=== PATIENT | female | born 1960 | race Caucasian/White ===

== ENCOUNTER 2023-05-23 22:31 | Emergency (ER) | payer OTHER ==
--- OUTSIDE RECORDS SUMMARY | 2023-05-23 22:43 | XMS REPORT | Continuity of Care Document ---
:1960 Author Organization [facility] t Address [address] [place] [id number] Care Team Providers Name Role Phone CHLOE Attending Clinician Unavailable Nelson Sandoval Attending Clinician [phone] Mathieu Cardona Attending Clinician [phone] Lokesh Aiken Attending Clinician [phone] CHLOE Admitting Clinician Unavailable Payers Payer Name Policy Type Policy Number Effective Date Expiration Date S jay[place] [id number] 2021 2022 ADVANTAGE (HMO) 00:00:00 00:00:[place] [id number] 2018 [place] (O) 00:00:00 Problems Condition Condition Condition Status Onset Resolution Last Treating Co mments Source Name Details Category Date Date Treatment Clinician Date Urinary Urinary Problem Active [facility] incontinen Incontinen 2-10 [facility] Hyperchole Hyperchole Problem Active 2019-09 S [facility] sterolemia sterolemia 2-01 [facility] m[facility]i 00:00: ty [facility] Epigastric Epigastric Problem Active 2019-09 [facility] pain Pain 2- [facility] 00:00: ty 00 [facility] Macrocytos Macrocytos Problem Active 2019-09 S [facility] is is 2- [facility] 00:00: ty 00 [facility] Depressive Depressive Problem Active 2019-09 [facility] disorder Disorder - Commun i 00:00: ty 00 [facility] Seasonal Seasonal Problem Active 2019-09 [facility] allergy Allergy - [facility] 00:00: ty 00 [facility] Asthma Asthma Problem Active 2019-09 [facility] -17 [facility] Allergies, Adverse Reactions, Alerts Allergy Allergy Status Severity Reaction(s) Onset Inactive Treating Comm ents Source Name Type Date Date Clinician Arlyn Allergy Active Seizure Moose c to Communi substanc ty e [facility] Social History Smoking Status Start Date Stop Date Source Former Smoker [facility] Medications Ordered Filled Start Stop Current Ordering Indication Dosage Frequency Signature Comments Components Source Medication Medication Date Date Medication? Clinician (SIG) Name Name Kenalog 40 Kenalog 40 No Kenalog 40 [facility]ose mg/mL mg/mL 2-22 mg/mL [facility]i suspension suspension 15:43: suspension ty for for 00 for Hospita injectionTa injectionTa injectionT l ke 1 mL by ke 1 mL by hitesh 1 mL Clinics injection injection by route. route. injection route. dexamethaso dexamethaso No dexamethas [facility] ne sodium ne sodium 2-22 one sodium Communi phosphate phosphate 15:41: phosphate ty 10 mg/mL 10 mg/mL 00 10 mg/mL [facility] injection injection injection l solutionTak solutionTak solutionTa Clinics e 1 mL by e 1 mL by ke 1 mL by injection injection injection route. route. route. Afluria Qd Afluria Qd No Afluria Qd Moose (36 (36 Communi mos mos (36 mos ty up)(PF)60 up)(PF)60 up)(PF)60 Hospita mcg (15 mcg mcg (15 mcg mcg (15 l x4)/0.5 mL x4)/0.5 mL mcg Cli nics IM syringe IM syringe x4)/0.5 mL PHARMACY PHARMACY IM syringe ADMINISTERE ADMINISTERE PHARMACY D D ADMINISTER ED albuterol albuterol No albuterol [facility]ose sulfate HFA sulfate HFA sulfate Communi 90 90 HFA 90 ty mcg/actuati mcg/actuati mcg/actuat Hospita on aerosol on aerosol ion l inhaler 2 inhaler 2 aerosol Cl inics puffs BID puffs BID inhaler 2 puffs BID [id number]-jssiq X61-jwjrj No J19-uysra [facility] acid-B6-soy acid-B6-soy acid-B6-so Communi rice ext rice ext y [facility] fluconazole fluconazole No fluconazol Moose 150 mg 150 mg e 150 mg Communi tablet Take tablet Take tablet ty 1 tablet 1 tablet Take 1 Hospi ta every week every week tablet l by oral by oral every week Cli nics route. route. by oral route. montelukast montelukast No montelukas Moose 10 mg 10 mg t 10 mg Communi tablet 1 PO tablet 1 PO tablet 1 ty qd qd PO qd Hospita l Clinics Afluria Qd Afluria Qd No Afluria Qd Moose ( ( Communi mos mos (36 mos ty up)(PF)60 up)(PF)60 up)(PF)60 Hospita mcg (15 mcg mcg (15 mcg mcg (15 l x4)/0.5 mL x4)/0.5 mL mcg Cli nics IM syringe IM syringe x4)/0.5 mL PHARMACY PHARMACY IM syringe ADMINISTERE ADMINISTERE PHARMACY D D ADMINISTER ED albuterol albuterol No albuterol [facility]ose sulfate HFA sulfate HFA sulfate Communi 90 90 HFA 90 ty mcg/actuati mcg/actuati mcg/actuat Hospita on aerosol on aerosol ion l inhaler 2 inhaler 2 aerosol Cl inics puffs BID puffs BID inhaler 2 puffs BID I49-cnyed Z99-oytgq No O09-livfm [facility] acid-B6-soy acid-B6-soy acid-B6-so Communi rice ext rice ext y rice ext t y Hospita l Clinics dexamethaso dexamethaso No 1mL dexamethas [facility] ne sodium ne sodium one sodium Communi phosphate phosphate phosphate ty 10 mg/mL 10 mg/mL 10 mg/mL [facility] injection injection injection l solution solution solution Cli nics Take 1 mL Take 1 mL Take 1 mL by by by injection injection injection route. route. route. fluconazole fluconazole No fluconazol [facility] 150 mg 150 mg e 150 mg Communi tablet Take tablet Take tablet ty 1 tablet 1 tablet Take 1 Hospi ta every week every week tablet l by oral by oral every week Cli nics route. route. by oral route. Kenalog 40 Kenalog 40 No 1mL Kenalog 40 [facility] mg/mL mg/mL mg/mL Communi suspension suspension suspension ty for for for Hospita injection injection injection l Take 1 mL Take 1 mL Take 1 mL Clinics by by by injection injection injection route. route. route. montelukast montelukast No montelukas [facility]ose 10 mg 10 mg t 10 mg Communi tablet TAKE tablet TAKE tablet ty 1 TABLET BY 1 TABLET BY TAKE 1 Hospita MOUTH EVERY MOUTH EVERY TABLET BY l DAY DAY MOUTH Clinics EVERY DAY Afluria Qd Afluria Qd No Afluria Qd Moose ( (36 Communi mos mos (36 mos ty up)(PF)60 up)(PF)60 up)(PF)60 Hospita mcg (15 mcg mcg (15 mcg mcg (15 l x4)/0.5 mL x4)/0.5 mL mcg Cli nics IM syringe IM syringe x4)/0.5 mL PHARMACY PHARMACY IM syringe ADMINISTERE ADMINISTERE PHARMACY D D ADMINISTER ED albuterol albuterol No albuterol [facility]ose sulfate HFA sulfate HFA sulfate Communi 90 90 HFA 90 ty mcg/actuati mcg/actuati mcg/actuat Hospita on aerosol on aerosol ion l inhaler 2 inhaler 2 aerosol Cl inics puffs BID puffs BID inhaler 2 puffs BID V48-rjirr U24-fxtkz No L11-txbyo [facility] acid-B6-soy acid-B6-soy acid-B6-so Communi rice ext rice ext y rice ext t y Hospita l Clinics dexamethaso dexamethaso No 1mL dexamethas [facility]ose ne sodium ne sodium one sodium Communi phosphate phosphate phosphate ty 10 mg/mL 10 mg/mL 10 mg/mL [facility] injection injection injection l solution solution solution Cli nics Take 1 mL Take 1 mL Take 1 mL by by by injection injection injection route. route. route. fluconazole fluconazole No fluconazol [facility]ose 150 mg 150 mg e 150 mg Communi tablet Take tablet Take tablet ty 1 tablet 1 tablet Take 1 Hospi ta every week every week tablet l by oral by oral every week Cli nics route. route. by oral route. Kenalog 40 Kenalog 40 No 1mL Kenalog 40 [facility]ose mg/mL mg/mL mg/mL Communi suspension suspension suspension ty for for for Hospita injection injection injection l Take 1 mL Take 1 mL Take 1 mL Clinics by by by injection injection injection route. route. route. montelukast montelukast No montelukas Moose 10 mg 10 mg t 10 mg Communi tablet TAKE tablet TAKE tablet ty 1 TABLET BY 1 TABLET BY TAKE 1 Hospita MOUTH EVERY MOUTH EVERY TABLET BY l DAY DAY MOUTH Clinics EVERY DAY Afluria Qd Afluria Qd No Afluria Qd Moose ( (36 Communi mos mos (36 mos ty up)(PF)60 up)(PF)60 up)(PF)60 Hospita mcg (15 mcg mcg (15 mcg mcg (15 l x4)/0.5 mL x4)/0.5 mL mcg Cli nics IM syringe IM syringe x4)/0.5 mL PHARMACY PHARMACY IM syringe ADMINISTERE ADMINISTERE PHARMACY D D ADMINISTER ED albuterol albuterol No albuterol [facility] sulfate HFA sulfate HFA sulfate Communi 90 90 HFA 90 ty mcg/actuati mcg/actuati mcg/actuat Hospita on aerosol on aerosol ion l inhaler 2 inhaler 2 aerosol Cl inics puffs BID puffs BID inhaler 2 puffs BID [id number]-uelkd M37-kabyk No H68-gkzux [facility]ose acid-B6-soy acid-B6-soy acid-B6-so Communi rice ext rice ext y rice ext t y Hospita l Clinics dexamethaso dexamethaso No 1mL dexamethas Moose ne sodium ne sodium one sodium Communi phosphate phosphate phosphate ty 10 mg/mL 10 mg/mL 10 mg/mL [facility] injection injection injection l solution solution solution Cli nics Take 1 mL Take 1 mL Take 1 mL by by by injection injection injection route. route. route. Kenalog 40 Kenalog 40 No 1mL Kenalog 40 [facility]ose mg/mL mg/mL mg/mL Communi suspension suspension suspension ty for for for Hospita injection injection injection l Take 1 mL Take 1 mL Take 1 mL Clinics by by by injection injection injection route. route. route. montelukast montelukast No montelukas [facility]ose 10 mg 10 mg t 10 mg Communi tablet TAKE tablet TAKE tablet ty 1 TABLET BY 1 TABLET BY TAKE 1 Hospita MOUTH EVERY MOUTH EVERY TABLET BY l DAY DAY MOUTH Clinics EVERY DAY Afluria Qd Afluria Qd No Afluria Qd Moose (36 ( Communi mos mos (36 mos ty up)(PF)60 up)(PF)60 up)(PF)60 Hospita mcg (15 mcg mcg (15 mcg mcg (15 l x4)/0.5 mL x4)/0.5 mL mcg Cli nics IM syringe IM syringe x4)/0.5 mL PHARMACY PHARMACY IM syringe ADMINISTERE ADMINISTERE PHARMACY D D ADMINISTER ED albuterol albuterol No 1puff(s Q3.5H albuterol [facility] sulfate HFA sulfate HFA ) sulfate Communi 90 90 HFA 90 ty mcg/actuati mcg/actuati mcg/actuat Hospita on aerosol on aerosol ion l inhaler inhaler aerosol Clinic s Inhale 1 Inhale 1 inhaler puff every puff every Inhale 1 3-4 hours 3-4 hours puff every by by 3-4 hours inhalation inhalation by route as route as inhalation needed. needed. route as needed. R59-jerab A55-vihkw No N42-dmxdx [facility] acid-B6-soy acid-B6-soy acid-B6-so Communi rice ext rice ext y rice ext t y Hospita l Clinics Medrol Medrol No 1dose Medrol Moose (Jayro) 4 mg (Jayro) 4 mg pk(s) (Jayro) 4 mg Communi tablets in tablets in tablets in ty a dose pack a dose pack a dose Hospita Take 1 dose Take 1 dose pack Take l pk by oral pk by oral 1 dose pk Clinics route as route as by oral directed. directed. route as directed. montelukast montelukast No montelukas [facility]ose 10 mg 10 mg t 10 mg Communi tablet TAKE tablet TAKE tablet ty 1 TABLET BY 1 TABLET BY TAKE 1 Hospita MOUTH EVERY MOUTH EVERY TABLET BY l DAY DAY MOUTH Clinics EVERY DAY Trelegy Trelegy No 1puff(s Q1D Trelegy Swe phan Ellipta 100 Ellipta 100 ) Ellipta Communi mcg-62.5 mcg-62.5 100 ty mcg-25 mcg mcg-25 mcg mcg-62.5 Hospita powder for powder for mcg-25 mcg l inhalation inhalation powder for Clinics Inhale 1 Inhale 1 inhalation puff every puff every Inhale 1 day by day by puff every inhalation inhalation day by route. route. inhalation route. Zithromax Zithromax No Zithromax Moose Z-Jayro 250 Z-Jayro 250 Z-Jayro 250 Communi mg tablet mg tablet mg tablet ty TAKE 2 TAKE 2 TAKE 2 Hospita TABLETS TABLETS TABLETS l (500 MG) BY (500 MG) BY (500 MG) Clinics ORAL ROUTE ORAL ROUTE BY ORAL ONCE DAILY ONCE DAILY ROUTE ONCE FOR 1 DAY FOR 1 DAY DAILY FOR THEN 1 THEN 1 1 DAY THEN TABLET (250 TABLET (250 1 TABLET MG) BY ORAL MG) BY ORAL (250 MG) ROUTE ONCE ROUTE ONCE BY ORAL DAILY FOR 4 DAILY FOR 4 ROUTE ONCE DAYS DAYS DAILY FOR 4 DAYS Afluria Qd Afluria Qd No Afluria Qd Moose ( ( Communi mos mos (36 mos ty up)(PF)60 up)(PF)60 up)(PF)60 Hospita mcg (15 mcg mcg (15 mcg mcg (15 l x4)/0.5 mL x4)/0.5 mL mcg Cli nics IM syringe IM syringe x4)/0.5 mL PHARMACY PHARMACY IM syringe ADMINISTERE ADMINISTERE PHARMACY D D ADMINISTER ED albuterol albuterol No albuterol Moose sulfate HFA sulfate HFA sulfate Communi 90 90 HFA 90 ty mcg/actuati mcg/actuati mcg/actuat Hospita on aerosol on aerosol ion l inhaler inhaler aerosol Clinic s Inhale 1 Inhale 1 inhaler puff every puff every Inhale 1 3-4 hours 3-4 hours puff every by by 3-4 hours inhalation inhalation by route as route as inhalation needed. needed. route as needed. montelukast montelukast No montelukas Moose 10 mg 10 mg t 10 mg Communi tablet TAKE tablet TAKE tablet ty 1 TABLET BY 1 TABLET BY TAKE 1 Hospita MOUTH EVERY MOUTH EVERY TABLET BY l DAY DAY MOUTH Clinics EVERY DAY neomycin-po neomycin-po No neomycin-p Moose lymyxin-dex lymyxin-dex olymyxin-d Communi ameth 3.5 ameth 3.5 exameth ty mg/mL-10,00 mg/mL-10,00 3.5 H ospita 0 0 mg/mL-10,0 l unit/mL-0.1 unit/mL-0.1 00 C linics % eye drops % eye drops unit/mL-0. INSTILL 1 INSTILL 1 1% eye DROP INTO DROP INTO drops AFFECTED AFFECTED INSTILL 1 EYE(S) BY EYE(S) BY DROP INTO OPHTHALMIC OPHTHALMIC AFFECTED ROUTE EVERY ROUTE EVERY EYE(S) BY 4 HOURS 4 HOURS OPHTHALMIC ROUTE EVERY 4 HOURS Afluria Qd Afluria Qd No Afluria Qd Moose (36 (36 Communi mos mos (36 mos ty up)(PF)60 up)(PF)60 up)(PF)60 Hospita mcg (15 mcg mcg (15 mcg mcg (15 l x4)/0.5 mL x4)/0.5 mL mcg Cli nics IM syringe IM syringe x4)/0.5 mL PHARMACY PHARMACY IM syringe ADMINISTERE ADMINISTERE PHARMACY D D ADMINISTER ED albuterol albuterol No albuterol Moose sulfate HFA sulfate HFA sulfate Communi 90 90 HFA 90 ty mcg/actuati mcg/actuati mcg/actuat Hospita on aerosol on aerosol ion l inhaler inhaler aerosol Clinic s Inhale 1 Inhale 1 inhaler puff every puff every Inhale 1 3-4 hours 3-4 hours puff every by by 3-4 hours inhalation inhalation by route as route as inhalation needed. needed. route as needed. gatifloxaci gatifloxaci No gatifloxac Moose n 0.5 % eye n 0.5 % eye in 0.5 % Communi drops drops eye drops ty Hospita l Clinics montelukast montelukast No montelukas Moose 10 mg 10 mg t 10 mg Communi tablet TAKE tablet TAKE tablet ty 1 TABLET BY 1 TABLET BY TAKE 1 Hospita MOUTH EVERY MOUTH EVERY TABLET BY l DAY DAY MOUTH Clinics EVERY DAY mupirocin 2 mupirocin 2 No mupirocin Moose % topical % topical 2 % Commu ni ointment ointment topical ty APPLY A APPLY A ointment Hospi ta SMALL SMALL APPLY A l AMOUNT TO AMOUNT TO SMALL Clin ics THE THE AMOUNT TO AFFECTED AFFECTED THE AREA BY AREA BY AFFECTED TOPICAL TOPICAL AREA BY ROUTE 3 ROUTE 3 TOPICAL TIMES PER TIMES PER ROUTE 3 DAY DAY TIMES PER DAY neomycin-po neomycin-po No neomycin-p [facility]ose lymyxin-dex lymyxin-dex olymyxin-d Communi ameth 3.5 ameth 3.5 exameth ty mg/mL-10,00 mg/mL-10,00 3.5 H ospita 0 0 mg/mL-10,0 l unit/mL-0.1 unit/mL-0.1 00 C linics % eye drops % eye drops unit/mL-0. INSTILL 1 INSTILL 1 1% eye DROP INTO DROP INTO drops AFFECTED AFFECTED INSTILL 1 EYE(S) BY EYE(S) BY DROP INTO OPHTHALMIC OPHTHALMIC AFFECTED ROUTE EVERY ROUTE EVERY EYE(S) BY 4 HOURS 4 HOURS OPHTHALMIC ROUTE EVERY 4 HOURS Afluria Qd Afluria Qd No Afluria Qd Moose ( ( Communi mos mos (36 mos ty up)(PF)60 up)(PF)60 up)(PF)60 Hospita mcg (15 mcg mcg (15 mcg mcg (15 l x4)/0.5 mL x4)/0.5 mL mcg Cli nics IM syringe IM syringe x4)/0.5 mL PHARMACY PHARMACY IM syringe ADMINISTERE ADMINISTERE PHARMACY D D ADMINISTER ED albuterol albuterol No albuterol Moose sulfate HFA sulfate HFA sulfate Communi 90 90 HFA 90 ty mcg/actuati mcg/actuati mcg/actuat Hospita on aerosol on aerosol ion l inhaler inhaler aerosol Clinic s Inhale 1 Inhale 1 inhaler puff every puff every Inhale 1 3-4 hours 3-4 hours puff every by by 3-4 hours inhalation inhalation by route as route as inhalation needed. needed. route as needed. montelukast montelukast No montelukas Moose 10 mg 10 mg t 10 mg Communi tablet TAKE tablet TAKE tablet ty 1 TABLET BY 1 TABLET BY TAKE 1 Hospita MOUTH EVERY MOUTH EVERY TABLET BY l DAY DAY MOUTH Clinics EVERY DAY mupirocin 2 mupirocin 2 No mupirocin Moose % topical % topical 2 % Commu ni ointment ointment topical ty APPLY A APPLY A ointment Hospi ta SMALL SMALL APPLY A l AMOUNT TO AMOUNT TO SMALL Clin ics THE THE AMOUNT TO AFFECTED AFFECTED THE AREA BY AREA BY AFFECTED TOPICAL TOPICAL AREA BY ROUTE 3 ROUTE 3 TOPICAL TIMES PER TIMES PER ROUTE 3 DAY DAY TIMES PER DAY sulfamethox sulfamethox No 1 Q12H sulfametho Moose azole 800 azole 800 xazole 800 Communi mg-trimetho mg-trimetho mg-trimeth ty prim 160 mg prim 160 mg oprim 160 Hospita tablet Take tablet Take mg tablet l 1 tablet 1 tablet Take 1 Clini cs every 12 every 12 tablet hours by hours by every 12 oral route. oral route. hours by oral route. Afluria Qd Afluria Qd No Afluria Qd Moose (36 (36 Communi mos mos (36 mos ty up)(PF)60 up)(PF)60 up)(PF)60 Hospita mcg (15 mcg mcg (15 mcg mcg (15 l x4)/0.5 mL x4)/0.5 mL mcg Cli nics IM syringe IM syringe x4)/0.5 mL PHARMACY PHARMACY IM syringe ADMINISTERE ADMINISTERE PHARMACY D D ADMINISTER ED albuterol albuterol No albuterol Moose sulfate HFA sulfate HFA sulfate Communi 90 90 HFA 90 ty mcg/actuati mcg/actuati mcg/actuat Hospita on aerosol on aerosol ion l inhaler inhaler aerosol Clinic s Inhale 1 Inhale 1 inhaler puff every puff every Inhale 1 3-4 hours 3-4 hours puff every by by 3-4 hours inhalation inhalation by route as route as inhalation needed. needed. route as needed. montelukast montelukast No montelukas Moose 10 mg 10 mg t 10 mg Communi tablet TAKE tablet TAKE tablet ty 1 TABLET BY 1 TABLET BY TAKE 1 Hospita MOUTH EVERY MOUTH EVERY TABLET BY l DAY DAY MOUTH Clinics EVERY DAY mupirocin 2 mupirocin 2 No mupirocin Moose % topical % topical 2 % Commu ni ointment ointment topical ty APPLY A APPLY A ointment Hospi ta SMALL SMALL APPLY A l AMOUNT TO AMOUNT TO SMALL Clin ics THE THE AMOUNT TO AFFECTED AFFECTED THE AREA BY AREA BY AFFECTED TOPICAL TOPICAL AREA BY ROUTE 3 ROUTE 3 TOPICAL TIMES PER TIMES PER ROUTE 3 DAY DAY TIMES PER DAY sulfamethox sulfamethox No sulfametho [facility]ose azole 800 azole 800 xazole 800 Communi mg-trimetho mg-trimetho mg-trimeth ty prim 160 mg prim 160 mg oprim 160 Hospita tablet Take tablet Take mg tablet l 1 tablet 1 tablet Take 1 Clini cs every 12 every 12 tablet hours by hours by every 12 oral route. oral route. hours by oral route. Adipex-P Adipex-P No .5 Q1D Adipex-P Swe phan 37.5 mg 37.5 mg 37.5 mg Commun i tablet Take tablet Take tablet ty 0.5 tablets 0.5 tablets Take 0.5 Hospita every day every day tablets l by oral by oral every day Clin ics route. route. by oral route. albuterol albuterol No albuterol [facility]ose sulfate HFA sulfate HFA sulfate Communi 90 90 HFA 90 ty mcg/actuati mcg/actuati mcg/actuat Hospita on aerosol on aerosol ion l inhaler inhaler aerosol Clinic s Inhale 1 Inhale 1 inhaler puff every puff every Inhale 1 3-4 hours 3-4 hours puff every by by 3-4 hours inhalation inhalation by route as route as inhalation needed. needed. route as needed. Wegovy 2.4 Wegovy 2.4 No .25mg Q1W Wegovy 2.4 Moose mg/0.75 mL mg/0.75 mL mg/0.75 mL Communi subcutaneou subcutaneou subcutaneo ty s pen s pen us pen Hospita injector injector injector l Inject 0.25 Inject 0.25 Inject Clinics mg every mg every 0.25 mg week by week by every week subcutaneou subcutaneou by s route. s route. subcutaneo us route. Adipex-P Adipex-P No .5 Q1D Adipex-P Swe phan 37.5 mg 37.5 mg 37.5 mg Commun i tablet Take tablet Take tablet ty 0.5 tablets 0.5 tablets Take 0.5 Hospita every day every day tablets l by oral by oral every day Clin ics route. route. by oral route. albuterol albuterol No albuterol [facility]ose sulfate HFA sulfate HFA sulfate Communi 90 90 HFA 90 ty mcg/actuati mcg/actuati mcg/actuat Hospita on aerosol on aerosol ion l inhaler inhaler aerosol Clinic s Inhale 1 Inhale 1 inhaler puff every puff every Inhale 1 3-4 hours 3-4 hours puff every by by 3-4 hours inhalation inhalation by route as route as inhalation needed. needed. route as needed. methocarbam methocarbam No 2 BID methocarba [facility]ose ol 500 mg ol 500 mg mol 500 mg Communi tablet Take tablet Take tablet ty 2 tablets 2 tablets Take 2 [facility] twice a day twice a day tablets l by oral by oral twice a Clinic s route. route. day by oral route. montelukast montelukast No 1 Q1D montelukas [facility]ose 10 mg 10 mg t 10 mg Communi tablet Take tablet Take tablet ty 1 tablet 1 tablet Take 1 Hospi ta every day every day tablet l by oral by oral every day Clin ics route. route. by oral route. prednisone prednisone No prednisone [facility]ose 20 mg 20 mg 20 mg Communi tablet 3 po tablet 3 po tablet 3 ty first day, first day, po first Hospita 2 po second 2 po second day, 2 po l day, then 1 day, then 1 second Clinics po qd until po qd until day, then finished finished 1 po qd until finished Zithromax Zithromax No Zithromax [facility]ose Z-Jayro 250 Z-Jayro 250 Z-Jayro 250 Communi mg tablet mg tablet mg tablet ty TAKE 2 TAKE 2 TAKE 2 Hospita TABLETS TABLETS TABLETS l (500 MG) BY (500 MG) BY (500 MG) Clinics ORAL ROUTE ORAL ROUTE BY ORAL ONCE DAILY ONCE DAILY ROUTE ONCE FOR 1 DAY FOR 1 DAY DAILY FOR THEN 1 THEN 1 1 DAY THEN TABLET (250 TABLET (250 1 TABLET MG) BY ORAL MG) BY ORAL (250 MG) ROUTE ONCE ROUTE ONCE BY ORAL DAILY FOR 4 DAILY FOR 4 ROUTE ONCE DAYS DAYS DAILY FOR 4 DAYS Adipex-P Adipex-P No .5 Q1D Adipex-P Swe phan 37.5 mg 37.5 mg 37.5 mg Commun i tablet Take tablet Take tablet ty 0.5 tablets 0.5 tablets Take 0.5 Hospita every day every day tablets l by oral by oral every day Clin ics route. route. by oral route. albuterol albuterol No albuterol [facility] sulfate HFA sulfate HFA sulfate Communi 90 90 HFA 90 ty mcg/actuati mcg/actuati mcg/actuat Hospita on aerosol on aerosol ion l inhaler inhaler aerosol Clinic s Inhale 1 Inhale 1 inhaler puff every puff every Inhale 1 3-4 hours 3-4 hours puff every by by 3-4 hours inhalation inhalation by route as route as inhalation needed. needed. route as needed. montelukast montelukast No 1 Q1D montelukas [facility]ose 10 mg 10 mg t 10 mg Communi tablet Take tablet Take tablet ty 1 tablet 1 tablet Take 1 Hospi ta every day every day tablet l by oral by oral every day Clin ics route. route. by oral route. albuterol albuterol No albuterol [facility] sulfate HFA sulfate HFA sulfate Communi 90 90 HFA 90 ty mcg/actuati mcg/actuati mcg/actuat Hospita on aerosol on aerosol ion l inhaler inhaler aerosol Clinic s Inhale 1 Inhale 1 inhaler puff every puff every Inhale 1 3-4 hours 3-4 hours puff every by by 3-4 hours inhalation inhalation by route as route as inhalation needed. needed. route as needed. clotrimazol clotrimazol No clotrimazo [facility] e-betametha e-betametha le-betamet Communi sone 1 sone 1 hasone 1 ty %-0.05 % %-0.05 % %-0.05 % [facility] topical topical topical l cream APPLY cream APPLY cream Clinics TO THE TO THE APPLY TO AFFECTED AFFECTED THE AND AND AFFECTED SURROUNDING SURROUNDING AND AREAS OF AREAS OF SURROUNDIN SKIN BY SKIN BY G AREAS OF TOPICAL TOPICAL SKIN BY ROUTE 2 ROUTE 2 TOPICAL TIMES PER TIMES PER ROUTE 2 DAY IN THE DAY IN THE TIMES PER MORNING AND MORNING AND DAY IN THE EVENING FOR EVENING FOR MORNING 2 WEEKS 2 WEEKS AND EVENING FOR 2 WEEKS albuterol albuterol No albuterol [facility] sulfate HFA sulfate HFA sulfate Communi 90 90 HFA 90 ty mcg/actuati mcg/actuati mcg/actuat Hospita on aerosol on aerosol ion l inhaler inhaler aerosol Clinic s Inhale 1 Inhale 1 inhaler puff every puff every Inhale 1 3-4 hours 3-4 hours puff every by by 3-4 hours inhalation inhalation by route as route as inhalation needed. needed. route as needed. clotrimazol clotrimazol No clotrimazo [facility] e-betametha e-betametha le-betamet Communi sone 1 sone 1 hasone 1 ty %-0.05 % %-0.05 % %-0.05 % [facility] topical topical topical l cream APPLY cream APPLY cream Clinics TO THE TO THE APPLY TO AFFECTED AFFECTED THE AND AND AFFECTED SURROUNDING SURROUNDING AND AREAS OF AREAS OF SURROUNDIN SKIN BY SKIN BY G AREAS OF TOPICAL TOPICAL SKIN BY ROUTE 2 ROUTE 2 TOPICAL TIMES PER TIMES PER ROUTE 2 DAY IN THE DAY IN THE TIMES PER MORNING AND MORNING AND DAY IN THE EVENING FOR EVENING FOR MORNING 2 WEEKS 2 WEEKS AND EVENING FOR 2 WEEKS albuterol albuterol No albuterol Moose sulfate HFA sulfate HFA sulfate Communi 90 90 HFA 90 ty mcg/actuati mcg/actuati mcg/actuat Hospita on aerosol on aerosol ion l inhaler inhaler aerosol Clinic s Inhale 1 Inhale 1 inhaler puff every puff every Inhale 1 3-4 hours 3-4 hours puff every by by 3-4 hours inhalation inhalation by route as route as inhalation needed. needed. route as needed. Bactrim DS Bactrim DS No 1 Q12H Bactrim DS Moose 800 mg-160 800 mg-160 800 mg-160 Communi mg tablet mg tablet mg tablet ty Take 1 Take 1 Take 1 Hospita tablet tablet tablet l every 12 every 12 every 12 Cli nics hours by hours by hours by oral route. oral route. oral route. Afluria Qd Afluria Qd No Afluria Qd Moose (36 (36 Communi mos mos (36 mos ty up)(PF)60 up)(PF)60 up)(PF)60 Hospita mcg (15 mcg mcg (15 mcg mcg (15 l x4)/0.5 mL x4)/0.5 mL mcg Cli nics IM syringe IM syringe x4)/0.5 mL PHARMACY PHARMACY IM syringe ADMINISTERE ADMINISTERE PHARMACY D D ADMINISTER ED albuterol albuterol No albuterol Moose sulfate HFA sulfate HFA sulfate Communi 90 90 HFA 90 ty mcg/actuati mcg/actuati mcg/actuat Hospita on aerosol on aerosol ion l inhaler 2 inhaler 2 aerosol Cl inics puffs BID puffs BID inhaler 2 puffs BID I71-nlzay J50-mrlmy No R83-pjjtq [place] acid-B6-soy acid-B6-soy acid-B6-so Communi rice ext rice ext y rice ext t y Hospita l Clinics fluconazole fluconazole No 1 Q1W fluconazol [place] 150 mg 150 mg e 150 mg Communi tablet Take tablet Take tablet ty 1 tablet 1 tablet Take 1 Hospi ta every week every week tablet l by oral by oral every week Cli nics route. route. by oral route. montelukast montelukast No montelukas [place] 10 mg 10 mg t 10 mg Communi tablet 1 PO tablet 1 PO tablet 1 ty qd qd PO qd Hospita l Clinics Vital Signs Vital Name Observation Time Observation Value Comments Source BP Diastolic 2022-04-30 00:00:00 72 mm[Hg] [facility] Height 2022-04-30 00:00:00 63 [in_i] [facility] BMI (Body Mass 2022-04-30 00:00:00 36.7 kg/m2 [facility] BP Systolic 2022-04-30 00:00:00 116 mm[Hg] [facility] Body Weight 2022-04-30 00:00:00 3312 [oz_av] [facility] BP Diastolic 2022-02-19 00:00:00 74 mm[Hg] [facility] Height 2022-02-19 00:00:00 63 [in_i] [facility] BMI (Body Mass 2022-02-19 00:00:00 35.8 kg/m2 [facility] BP Systolic 2022-02-19 00:00:00 114 mm[Hg] [facility] Body Weight 2022-02-19 00:00:00 3232 [oz_av] [facility] BP Diastolic 2022-02-08 00:00:00 72 mm[Hg] [facility] Height 2022-02-08 00:00:00 63 [in_i] [facility] BMI (Body Mass 2022-02-08 00:00:00 35.6 kg/m2 [facility]) [facility] BP Systolic 2022-02-08 00:00:00 112 mm[Hg] [facility] Body Weight 2022-02-08 00:00:00 3216 [oz_av] [facility] Height 2022-01-08 00:00:00 63 [in_i] [facility] BP Diastolic 2021-10-11 00:00:00 74 mm[Hg] [facility] Height 2021-10-11 00:00:00 63 [in_i] [facility] BMI (Body Mass 2021-10-11 00:00:00 36.5 kg/m2 [facility] BP Systolic 2021-10-11 00:00:00 116 mm[Hg] [facility] Body Weight 2021-10-11 00:00:00 3296 [oz_av] [facility] BP Diastolic 2021-08-02 00:00:00 74 mm[Hg] [facility] Height 2021-08-02 00:00:00 63 [in_i] [facility] BMI (Body Mass 2021-08-02 00:00:00 37.8 kg/m2 [facility] BP Systolic 2021-08-02 00:00:00 112 mm[Hg] [facility] Body Weight 2021-08-02 00:00:00 3416 [oz_av] [facility] BP Diastolic 2021-05-18 00:00:00 72 mm[Hg] [facility] Height 2021-05-18 00:00:00 63 [in_i] [facility] BMI (Body Mass 2021-05-18 00:00:00 39.5 kg/m2 [facility]) [facility] BP Systolic 2021-05-18 00:00:00 112 mm[Hg] [facility] Body Weight 2021-05-18 00:00:00 3568 [oz_av] [facility] BP Diastolic 2021-05-08 00:00:00 70 mm[Hg] [facility] Height 2021-05-08 00:00:00 63 [in_i] [facility] BMI (Body Mass 2021-05-08 00:00:00 39.6 kg/m2 [facility] BP Systolic 2021-05-08 00:00:00 134 mm[Hg] [facility] Body Weight 2021-05-08 00:00:00 3576 [oz_av] [facility] BP Diastolic 2021-04-27 00:00:00 82 mm[Hg] [facility] Height 2021-04-27 00:00:00 63 [in_i] [facility] BMI (Body Mass 2021-04-27 00:00:00 39.2 kg/m2 [facility]) [facility] BP Systolic 2021-04-27 00:00:00 128 mm[Hg] [facility] Body Weight 2021-04-27 00:00:00 3544 [oz_av] [facility] BP Diastolic 2021-04-18 00:00:00 85 mm[Hg] [facility] Height 2021-04-18 00:00:00 63 [in_i] [facility] BMI (Body Mass 2021-04-18 00:00:00 39.7 kg/m2 [facility] s BP Systolic 2021-04-18 00:00:00 134 mm[Hg] [facility] Body Weight 2021-04-18 00:00:00 3584 [oz_av] [facility] BP Diastolic 2020-12-15 00:00:00 88 mm[Hg] [facility] Height 2020-12-15 00:00:00 63 [in_i] [facility] BMI (Body Mass 2020-12-15 00:00:00 38.8 kg/m2 [facility] BP Systolic 2020-12-15 00:00:00 128 mm[Hg] [facility] Body Weight 2020-12-15 00:00:00 3504 [oz_av] [facility] BP Diastolic 2020-10-26 00:00:00 83 mm[Hg] [facility] Height 2020-10-26 00:00:00 63 [in_i] [facility] BP Systolic 2020-10-26 00:00:00 148 mm[Hg] [facility] BP Diastolic 2020-10-23 00:00:00 84 mm[Hg] [facility] Height 2020-10-23 00:00:00 63 [in_i] [facility] BMI (Body Mass 2020-10-23 00:00:00 39.1 kg/m2 [facility] BP Systolic 2020-10-23 00:00:00 152 mm[Hg] [facility] Body Weight 2020-10-23 00:00:00 3536 [oz_av] [facility] BP Diastolic 2020-09-26 00:00:00 82 mm[Hg] [facility] Height 2020-09-26 00:00:00 63 [in_i] [facility] BMI (Body Mass 2020-09-26 00:00:00 38.8 kg/m2 [facility]) [facility] BP Systolic 2020-09-26 00:00:00 118 mm[Hg] [facility] Body Weight 2020-09-26 00:00:00 3504 [oz_av] [facility] BP Diastolic 2020-09-15 00:00:00 82 mm[Hg] [facility] Height 2020-09-15 00:00:00 63 [in_i] [facility] BP Systolic 2020-09-15 00:00:00 122 mm[Hg] [facility] Procedures Procedure Date / Time Performed Performing Clinician [facility] XR, tibia + fibula, 2 2021-05-08 00:00:00 [facility] DEXA 2020-09-26 00:00:00 [facility] Procedure on Foot [facility] Arthroscopy of Knee [facility] Hand/finger Surgery [facility] Plan of Care Planned Activity Planned Date Details Comments Source Diagnostic Test 2022-01-08 rapid SARS CoV 2 Ag, Swee [facility] Pending 00:00:00 QL [place], respiratory Hospital Clinics specimen [code = rapid SARS CoV 2 Ag, QL [place], respiratory specimen] Encounters Start End Encounter Admission Attending Care Care Encounter Source Date/Time Date/Time Type Type Clinicians Facility Department ID 2022-05-15 2022-05-15 Outpatient ERICKSON_R [facility] [id number] [place] 00:00:00 00:00:00 615 [facility] 2022-04-30 2022-04-30 Outpatient ERICKSON_R [facility] [id number] [place] 00:00:00 00:00:00 [id number] Commun i ty Hospita l Clinics 2022-04-30 2022-04-30 Nelson [facility] [place] 00:00:00 00:00:00 [facility] DO: [address] Hospit a [facility] l [address], [place], [address] GARIMA , Ph. [phone] 2022-04-30 2022-04-30 Outpatient Garima [facility] [id number] 00:00:00 00:00:00 Nelson [id number] Sincere [id number] 2022-02-19 2022-02-19 Outpatient ERICKSON_R [facility] [id number] [place] 12:19:00 12:19:00 [id number] Commun i ty Hospita [facility] Clinics 2022-02-19 2022-02-19 [facility] [place] [facility] [place] 00:00:00 00:00:00 [facility] - ty DO: [address] [facility] [place] [place], [address] GARIMA , Ph. [phone] 2022-02-19 2022-02-19 Outpatient Garima [facility] [id number] 00:00:00 00:00:00 Nelson [id number] Sincere [id number] 2022-02-08 2022-02-08 Outpatient ERICKSON_R [facility] [id number] - [place] 11:38:00 11:38:00 610 Commun i ty Hospita l [facility] 2022-02-08 2022-02-08 Nelson [facility] [place] 00:00:00 00:00:00 [facility] - ty DO: [address] Hospit [facility] [place] [place], [facility] [place], [place], [address] GARIMA , Ph. 2022-02-08 2022-02-08 Outpatient Garima [facility] [id number] 00:00:00 00:00:00 Nelson [id number] Sincere [id number] 2022-02-07 2022-02-07 Outpatient ERICKSON_R [facility] [id number] - [place] 06:46:00 06:46:00 609 Commun i ty Hospita [facility] Clinics 2022-01-08 2022-01-08 Outpatient ERICKSON_R [facility] [id number] - [place] 03:28:00 03:28:00 510 Commun i ty Hospita l Clinics 2022-01-08 2022-01-08 Nelson [facility] [place] 00:00:00 00:00:00 [facility] - ty DO: [address] Hospit a [facility], HOSPITAL [facility], [address] GARIMA , Ph. 2022-01-08 2022-01-08 Outpatient Garima [facility] [id number] 00:00:00 00:00:00 Nelson [id number] Sincere [id number] 2021-12-12 2021-12-12 Outpatient ERICKSON_R [facility] [id number] - [place] 04:53:00 04:53:00 413 Commun i ty Hospita l Clinics 2021-10-11 2021-10-11 Outpatient ERICKSON_R [facility] [id number] - [place] 03:14:00 03:14:00 210 Commun i ty Hospita l Clinics 2021-10-11 2021-10-11 Nelson [facility] [place] 00:00:00 00:00:00 [facility] DO: [address] [place], [address] GARIMA , Ph. 2021-10-11 2021-10-11 Outpatient Garima [facility] [id number] 00:00:00 00:00:00 Nelson [id number] Sincere [id number] 2021-08-23 2021-08-23 Outpatient ERICKSON_R [facility] [id number] [place] 03:54:00 03:54:00 223 Commun i ty Hospita l [facility] 2021-08-02 2021-08-02 Outpatient ERICKSON_R [facility] [id number] [place] 11:45:00 11:45:00 202 Commun i ty Hospita l Clinics 2021-08-02 2021-08-02 Nelson [facility] [place] [id number] [place] 00:00:00 00:00:00 [facility] DO: [address] Hospit a [facility], HOSPITAL [facility], [address] GARIMA , Ph. [phone] 2021-08-02 2021-08-02 Outpatient Sandoval, [facility] [id number] 00:00:00 00:00:00 Nelson [id number] Sincere [id number] 2021-05-24 2021-05-24 Outpatient ERICKSON_R [facility] [id number] - [place] 12:53:00 12:53:00 [id number] Commun i ty Hospita l Clinics 2021-05-18 2021-05-18 Outpatient ERICKSON_R [facility] [id number] - [place] 04:41:00 04:41:00 917 Commun i ty Hospita l [facility] 2021-05-18 2021-05-18 Outpatient Sandoval, [facility] [id number] 00:00:00 00:00:00 Nelson [id number] Sincere [id number] 2021-05-18 2021-05-18 Nelson [facility] [place] 00:00:00 00:00:00 [facility] - ty DO: [address] [place], [address] GARIMA , Ph. [phone] 2021-05-08 2021-05-08 Outpatient ERICKSON_R [facility] [id number] - [place] 03:55:00 03:55:00 907 Commun i ty Hospita [facility] 2021-05-08 2021-05-08 Outpatient Sandoval, [facility] [id number] 00:00:00 00:00:00 Nelson [id number] Sincere [id number] 2021-05-08 2021-05-08 Nelson [facility] [place] [id number] [place] 00:00:00 00:00:00 [facility] - ty DO: [address] Hospit a [facility] G, H[place], [place], [address] GARIMA , Ph. 2021-04-27 2021-04-27 Outpatient ERICKSON_R [facility] [id number] [place] 05:58:00 05:58:00 827 Commun i ty Hospita [facility] 2021-04-27 2021-04-27 Nelson [facility] [place] 00:00:00 00:00:00 Since[facility] DO: [address] Hospit a [facility] G, [place], [place], [address] GARIMA , Ph. [phone] 2021-04-27 2021-04-27 Outpatient Garima [facility] [id number] 00:00:00 00:00:00 Nelson [id number] Sincere [id number] 2021-04-18 2021-04-18 Outpatient ERICKSON_R [facility] [id number] [place] 12:40:00 12:40:00 [id number] Commun i ty Hospita [facility] 2021-04-18 2021-04-18 Mathieu [facility] [place] - [place] 18 [place] 00:00:00 00:00:00 [facility] MSN, ETCHER ENAMELING, Hospital ty EARLY CHILDHOOD WORKER-C: [address] [place] [facility] [facility], [facility] s [address], [facility] E, [facility], [place], [place] MSN, EARLY CHILDHOOD WORKER-C [address] , Ph. 2021-04-18 2021-04-18 [facility] [id number] 00:00:00 00:00:00 Mathieu [id number] 2020-12-15 2020-12-15 Outpatient ERICKSON_R [facility] [id number] [place] 12:42:00 12:42:00 416 Commun i ty Hospita l Clinics 2020-12-15 2020-12-15 Nelson [facility] [place] 00:00:00 00:00:00 Sincere [facility] DO: [address] Hospit a [facility] [address], H[place], [address] GARIMA , Ph. [phone] 2020-12-15 2020-12-15 Outpatient Garima [facility] [id number] 00:00:00 00:00:00 [place] [id number] Sincere [id number] 2020-11-27 2020-11-27 Outpatient ERICKSON_R [facility] [id number] [place] 05:19:00 05:19:00 329 Commun i ty Hospita l Clinics 2020-11-21 2020-11-21 Outpatient Attila [facility] [id number] 00:00:00 00:00:00 Lokesh [id number] [place] [id number] 2020-11-21 Lokesh [facility] [place] 00:00:00 00:00:00 [facility] [address] [facility] [address] SURGERY , Ph. 2020-10-30 2020-10-30 Outpatient ERICKSON_R [facility] [id number] [place] 11:59:00 11:59:00 301 Commun i ty Hospita l Clinics 2020-10-26 2020-10-26 Outpatient ERICKSON_R [facility] [id number] [place] 09:47:00 09:47:00 225 Commun i ty Hospita l Clinics 2020-10-26 2020-10-26 Lokesh [facility] [place] 00:00:00 00:00:00 [facility] MD: [address] [place] [facility] [address] [place] [address] , Ph. 2020-10-26 2020-10-26 Outpatient Attila [facility] [id number] 00:00:00 00:00:00 Lokesh [id number] [place] [id number] 2020-10-23 2020-10-23 Outpatient ERICKSON_R [facility] [id number] [place] 04:45:00 04:45:00 222 Commun i ty Hospita l Clinics 2020-10-23 2020-10-23 Outpatient Garima [facility] [id number] 00:00:00 00:00:00 Nelson [id number] Sincere [id number] 2020-10-23 2020-10-23 Nelson [facility] [place] 00:00:00 00:00:00 [facility]: [address] [facility] [address] [place], [place], [address] GARIMA , Ph. 2020-10-02 2020-10-02 Outpatient ERICKSON_R [facility] [id number] [place] 11:40:00 11:40:00 201 Commun i ty Hospita l Clinics 2020-09-26 2020-09-26 Outpatient ERICKSON_R [facility] [id number] [place] 11:28:00 11:28:00 126 Commun i ty Hospita l Clinics 2020-09-26 2020-09-26 Outpatient Garima [facility] [id number] 00:00:00 00:00:00 Nelson [id number] Sincere [id number] 2020-09-26 2020-09-26 Nelson [facility] [place] [id number] [place] 00:00:00 00:00:00 [facility] DO: [address] [facility], [place], [place], [address] GARIMA , Ph. [phone] 2020-09-19 2020-09-19 Outpatient ERICKSON_R [facility] [id number] [place] 12:36:00 12:36:00 119 Commun i ty Hospita [facility] 2020-09-15 2020-09-15 Outpatient ERICKSON_R [facility] [id number] [place] 12:35:00 12:35:00 115 Commun i ty Hospita [facility] 2020-09-15 2020-09-15 Outpatient Garima, [facility] [id number] 00:00:00 00:00:00 Nelson [id number] Sincere [id number] 2020-09-15 2020-09-15 Nelson [facility] [place] [id number] [place] 00:00:00 00:00:00 [facility] DO: [address] [facility], [place], [place], [address] GARIMA , Ph. [phone] Results Test Description Test Time Test Comments Results Result Comments Source SARS-CoV-2 (COVID-19) Ag [Presence] in Respiratory spe cimen by 2022-01-08 14:25:00 Rapid immunoassay Test Item Value Reference Range Interpretation Comme nts SARS CoV 2 (test code = SARS CoV 2[facility] Ag [Presence] in Respiratory specimen by Rapid [id number] 14:25:00 Test Item Value Reference Range Interpretation Comments SARS CoV 2 (test code = SARS CoV 2) [facility] Ag [Presence] in Respiratory specimen by Rapid [id number] 15:19:00 Test Item Value Reference Range Interpretation Comments SARS CoV 2 (test code = SARS CoV 2) [facility] Ag [Presence] in Respiratory specimen by Rapid [id number] 09:47:00 Test Item Value Reference Range Interpretation Comments SARS CoV 2 (test code = SARS CoV 2) [facility] Ag [Presence] in Respiratory specimen by Rapid [id number] 09:47:00 Test Item Value Reference Range Interpretation Comments SARS CoV 2 (test code = SARS CoV 2) [facility] Ag [Presence] in Respiratory specimen by Rapid [id number] 09:47:00 Test Item Value Reference Range Interpretation Comments SARS CoV 2 (test code = SARS CoV 2) negative [facility]
[2023-05-23 23:50] LABS: Absolute Lymphocytes (CBC) 3.3 K/uL (0.7-4.9); Lymphocytes % 45.7 % (15.3-44.8); MCV 97.1 fL (80-100); MPV 7.4 fL (7.6-11.3); Platelets 253 thou/uL (152-406); RBC Red Blood Cell Count 4.01 M/uL (3.86-4.86)
[2023-05-23 23:55] LABS: Protime INR 0.94
[2023-05-24 00:11] LABS: Magnesium 1.9 mg/dL (1.6-2.4); Potassium 3.7 mEq/L (3.5-5.1); Troponin High Sensitivity 15.9 pg/mL (<58.9)
--- NOTE | 2023-05-24 01:40 | EDPHYS ---
Physician Documentation [facility] Name: Miranda Alberto Age: 63 yrs Sex: Female : 1960 Arrival Date: 05/23/2023 Time: 22:31 Bed 19 Private MD: ED Physician Stewart Jeffery HPI: 05/23 23:26 This 63 yrs old Female presents to ER via Ambulatory with complaints of NUMBNESS AND ms3 TINGLING IN LEG AND JAW. 23:26 63-year-old female with past medical history of asthma presents for left foot ms3 cramping/spasm that then traveled up her left leg and now patient is having altered sensation of her left leg. Patient states she is also noted left sided neck pain. Patient states her symptoms began at 8:30 PM. Patient denies difficulty walking, weakness, or pain at this time.. Historical: - Allergies: 22:55 paregoric; cm10 - PMHx: 22:55 Asthma; cm10 - Immunization history:: Adult Immunizations unknown. - Social history:: Smoking status: Patient/guardian denies using tobacco, the patient reports quitting approximately 20 years ago. ROS: 23:26 Constitutional: Negative for fever, and chills. Neck: Negative for injury, pain, and ms3 swelling, Cardiovascular: Negative for chest pain, and palpitations. Respiratory: Negative for shortness of breath, cough, wheezing, and pleuritic chest pain, Abdomen/GI: Negative for abdominal pain, nausea, vomiting, diarrhea, and constipation, Skin: Negative for injury, rash, and discoloration, 23:26 Neuro: Positive for cramping of LLE and altered sensation LLE, 23:26 All other systems are negative, Exam: 23:26 Constitutional: This is a well developed, well nourished patient who is awake, alert, ms3 and in no acute distress. Head/Face: Normocephalic, atraumatic. Neck: Trachea midline, no cervical lymphadenopathy. Supple, full range of motion without nuchal rigidity, or vertebral point tenderness. No Meningismus. Chest/axilla: Normal chest wall appearance and motion. Nontender with no deformity. Cardiovascular: Regular rate and rhythm with a normal S1 and S2. No gallops, murmurs, or rubs. Normal PMI, no JVD. No pulse deficits. Respiratory: Lungs have equal breath sounds bilaterally, clear to auscultation and percussion. No rales, rhonchi or wheezes noted. No increased work of breathing, no retractions or nasal flaring. Abdomen/GI: Soft, non-tender, with normal bowel sounds. No distension or tympany. No guarding or rebound. No evidence of tenderness throughout. Skin: Warm, dry with normal turgor. Normal color with no rashes, no lesions, and no evidence of cellulitis. MS/ Extremity: Pulses equal, no cyanosis. Neurovascular intact. Full, normal range of motion. Neuro: Awake and alert, GCS 15, oriented to person, place, time, and situation. Cranial nerves II-XII grossly intact. Motor strength 5/5 in all extremities. Sensory grossly intact. Cerebellar exam normal. Normal gait. 05/24 00:17 ECG was reviewed by the Attending Physician. ms3 01:39 Radiologist reports: CT head negative acute ms3 Vital Signs: 05/23 22:55 BP 144 / 76; Pulse 77; Resp 18 S; Temp 97.9; Pulse Ox 98% on R/A; Weight 104.33 kg; cm10 Height 5 ft. 3 in. ; Pain 0/10; 23:01 BP 113 / 73; Pulse 67; Resp 17 S; Pulse Ox 100% on R/A; ha1 05/24 00:00 BP 126 / 75; Pulse 68; Resp 17 S; Pulse Ox 100% on R/A; ha1 01:00 BP 106 / 79; Pulse 69; Resp 17 S; Pulse Ox 100% on R/A; ha1 02:00 BP 107 / 79; Pulse 68; Resp 17 S; Pulse Ox 100% on R/A; ha1 05/23 22:55 Body Mass Index 40.74 (104.33 kg, 160.02 cm) cm10 05/23 22:55 Pain Scale: Adult cm10 NIH Stroke Scale Scores: 05/23 23:26 NIHSS Score: 0 ms3 MDM: 23:26 Patient medically screened. ms3 05/24 01:39 Differential diagnosis: TIA, metabolic disorder, Muscle spasm. Data reviewed: vital ms3 signs, nurses notes, lab test result(s), EKG, radiologic studies, and as a result, I will discharge patient. Consideration of Admission/Observation Escalation of care including admission/observation considered. CT negative, NIH 0. Independent interpretation of the following test(s) in the Emergency Department X-Ray: My interpretation is CXR image reviewed by me without PNA, PTX. Counseling: I had a detailed discussion with the patient and/or guardian regarding the historical points, exam findings, and any diagnostic results supporting the discharge/admit diagnosis, lab results, radiology results, the need for outpatient follow up, to return to the emergency department if symptoms worsen or persist or if there are any questions or concerns that arise at home. Special discussion: I discussed with the patient/guardian in detail that at this point there is no indication for admission to the hospital. It is understood, however, that if the symptoms persist or worsen the patient needs to return immediately for re-evaluation. ED course: Discussed CT, chest x-ray, labs, EKG with patient. Patient to follow-up as discussed. All questions were answered. Return precautions discussed include numbness, weakness, worsening symptoms, or any other concerns. On reevaluation patient is alert and orient x4, no apparent distress, nontoxic-appearing, ambulatory in emergency department, speaking full sentences, without weakness, numbness, dizziness, headache. 01:39 Discussion of test interpretation with radiology: I had a discussion with radiology ms3 regarding a test interpretation. Discussed CT head with radiologist and no acute findings. 05/23 23:08 Order name: Basic Metabolic Panel; Complete Time: 00:16 3 05/23 23:08 Order name: CBC with Diff; Complete Time: 00:16 3 05/23 23:08 Order name: High Sensitivity Troponin; Complete Time: 00:16 3 05/23 23:08 Order name: Magnesium; Complete Time: 00:16 3 05/23 23:08 Order name: Protime (+inr); Complete Time: 00:16 3 05/23 23:08 Order name: Ptt, Activated; Complete Time: 00:16 3 05/23 23:08 Order name: CT Stroke Brain w/o Contrast 05/23 23:08 Order name: Stroke CXR 1 View 05/23 23:08 Order name: EKG; Complete Time: 23:09 3 05/23 23:08 Order name: Accucheck; Complete Time: 00:21 3 05/23 23:08 Order name: Cardiac monitoring; Complete Time: 23:37 ms3 05/23 23:08 Order name: EKG - Nurse/Tech; Complete Time: 00:20 ms3 05/23 23:08 Order name: IV Saline Lock; Complete Time: 23:37 ms3 05/23 23:08 Order name: Labs collected and sent; Complete Time: 23:37 ms3 05/23 23:08 Order name: NPO; Complete Time: 00:20 ms3 05/23 23:08 Order name: O2 Per Protocol; Complete Time: 00:20 ms3 05/23 23:08 Order name: O2 Sat Monitoring; Complete Time: 00:20 ms3 05/23 23:08 Order name: Stroke Swallow Screen; Complete Time: 00:20 ms3 EC:17 Rate is 67 beats/min. Rhythm is regular. QRS [place] is Normal. [place] interval is normal. QRS ms3 interval is normal. QT interval is normal. Clinical impression: Normal ECG. Interpreted by me. Reviewed by me. Administered Medications: No medications were administered Disposition Summary: 05/24/23 01:39 Discharge Ordered Notes: Location: Home ms3 Condition: Stable ms3 Diagnosis - Muscle spasm of calf ms3 - Pain in left leg ms3 Followup: ms3 - With: Mehdi Haq DO - When: 2 - 3 days - Reason: Recheck today's complaints Discharge Instructions: - Discharge Summary Sheet ms3 - Muscle Cramps and Spasms ms3 Forms: - Medication Reconciliation Form ms3 - Thank You Letter ms3 - Antibiotic Education ms3 - Prescription Opioid Use ms3 - Patient Portal Instructions ms3 - Leadership Thank You Letter ms3 NIH Stroke Scale - NIH Stroke Score Date: 05/23/2023 Time: 23:26 Total Score = 0 10. Dysarthria (speech clarity - read or repeat words) - 0(Normal) 11. Extinction and Inattention (visual/tactile/auditory/spatial/personal) - 0(No abnormality) 1a. Level of Consciousness (LOC) - 0(Alert) 1b. Level of Consciousness (LOC) (Month \T\ Age) - 0(Both) 1c. LOC Commands (Open \T\ Closes Eyes/Condenser Winder) - 0(Both) 2. Best Gaze (Lateral Gaze Paresis) - 0(Normal) 3. Visual Field Loss - 0(No visual loss) 4. Facial Palsy - 0(Normal) 5a. Left Arm: Motor (10-second hold) - 0(No drift) 5b. Right Arm: Motor (10-second hold) - 0(No drift) 6a. Left Leg: Motor (5-second hold - always test supine) - 0(No drift) 6b. Right Leg: Motor (5-second hold - always test supine) - 0(No drift) 7. Limb Ataxia (finger/nose \T\ heel/kidd - test with eyes open) - 0(Absent) 8. Sensory Loss (pinprick arms/legs/face) - 0(Normal) 9. Best Language: Aphasia (description/naming/reading) - 0(No aphasia) Initials: ms3 Signatures: Dispatcher [employer] EDStewart Field DO DO ms3 Lyly Phillip, RN RN cm10
--- NOTE | 2023-05-24 01:40 | ER ---
Nurse's Notes [facility] Name: Miranda Alberto Age: 63 yrs Sex: Female : 1960 Arrival Date: 05/23/2023 Time: 22:31 Bed 19 Private MD: Diagnosis: Muscle spasm of calf;Pain in left leg Presentation: 05/23 22:55 Chief complaint: Patient states: left leg cramp turned into numbness, numbness to left cm10 side of face. Pt states that these symptoms began between 8 \T\ 9pm. Coronavirus screen: Vaccine status: Patient reports receiving the 2nd dose of the covid vaccine. Client denies travel out of the [place] in the last 14 days. Ebola Screen: Patient denies travel to an Ebola-affected area in the 21 days before illness onset. No symptoms or risks identified at this time. Initial Sepsis Screen: Does the patient meet any 2 criteria? No. Patient's initial sepsis screen is negative. Does the patient have a suspected source of infection? No. Patient's initial sepsis screen is negative. Risk Assessment: Do you want to hurt yourself or someone else? Patient reports no desire to harm self or others. Onset of symptoms was May 23, 2023. 22:55 Method Of Arrival: Ambulatory cm10 22:55 Acuity: LILIAN 3 cm10 Triage Assessment: 23:00 General: Appears in no apparent distress. comfortable, Behavior is calm, cooperative. cm10 Pain: Denies pain. EENT: No deficits noted. Neuro: No deficits noted. Level of Consciousness is awake, alert, obeys commands, Oriented to person, place, time, situation, Speech is normal, Facial symmetry appears normal, Numbness in face and left leg Reports numbness in face and left leg. Cardiovascular: No deficits noted. Respiratory: No deficits noted. Airway is patent Respiratory effort is even, unlabored, Respiratory pattern is regular, symmetrical. GI: No deficits noted. : No deficits noted. Derm: No deficits noted. Skin is intact, Skin is pink, warm \T\ dry. Historical: - Allergies: 22:55 paregoric; cm10 - PMHx: 22:55 Asthma; cm10 - Immunization history:: Adult Immunizations unknown. - Social history:: Smoking status: Patient/guardian denies using tobacco, the patient reports quitting approximately 20 years ago. Screenin:01 [facility] ED Fall Risk Assessment (Adult) History of falling in the last 3 months, ha1 including since admission No falls in past 3 months (0 pts) Confusion or Disorientation No (0 pts) Intoxicated or Sedated No (0 pts) Impaired Gait No (0 pts) Mobility Assist Device Used No (0 pt) Altered Elimination No (0 pt) Score/Fall Risk Level 0 - 2 = Low Risk Oriented to surroundings, Maintained a safe environment, Educated pt \T\ family on fall prevention, incl call for assistance when getting out of bed. 05/24 00:45 Abuse screen: Denies threats or abuse. Denies injuries from another. Nutritional ha1 screening: No deficits noted. Tuberculosis screening: No symptoms or risk factors identified. Assessment: 05/23 23:01 General: Appears comfortable, Behavior is calm, cooperative. Pain: Denies pain. Neuro: ha1 Level of Consciousness is awake, alert, obeys commands, Oriented to person, place, time, situation, Reports numbness in left arm and left leg, and left side of face. Cardiovascular: Heart tones S1 S2 present Patient's skin is warm and dry. Rhythm is sinus rhythm. Respiratory: Airway is patent Respiratory effort is even, unlabored, Respiratory pattern is regular, symmetrical. GI: No signs and/or symptoms were reported involving the gastrointestinal system. Abdomen is round non-distended. : No signs and/or symptoms were reported regarding the genitourinary system. Derm: Skin is pink, warm \T\ dry. Musculoskeletal: Circulation, motion, and sensation intact. Range of motion: intact in all extremities. 05/24 00:00 Reassessment: Patient and/or family updated on plan of care and expected duration. Pain ha1 level reassessed. Patient is alert, oriented x 3, equal unlabored respirations, skin warm/dry/pink. 01:00 Reassessment: Patient and/or family updated on plan of care and expected duration. Pain ha1 level reassessed. Patient is alert, oriented x 3, equal unlabored respirations, skin warm/dry/pink. 02:00 Reassessment: Patient and/or family updated on plan of care and expected duration. Pain ha1 level reassessed. Patient is alert, oriented x 3, equal unlabored respirations, skin warm/dry/pink. Vital Signs: 09/22 22:55 BP 144 / 76; Pulse 77; Resp 18 S; Temp 97.9; Pulse Ox 98% on R/A; Weight 104.33 kg; cm10 Height 5 ft. 3 in. ; Pain 0/10; 23:01 BP 113 / 73; Pulse 67; Resp 17 S; Pulse Ox 100% on R/A; ha1 05/24 00:00 BP 126 / 75; Pulse 68; Resp 17 S; Pulse Ox 100% on R/A; ha1 01:00 BP 106 / 79; Pulse 69; Resp 17 S; Pulse Ox 100% on R/A; ha1 02:00 BP 107 / 79; Pulse 68; Resp 17 S; Pulse Ox 100% on R/A; ha1 05/23 22:55 Body Mass Index 40.74 (104.33 kg, 160.02 cm) cm10 05/23 22:55 Pain Scale: Adult cm10 NIH Stroke Scale Scores: 05/23 23:26 NIHSS Score: 0 ms3 ED Course: 22:36 Patient arrived in ED. [id number] 22:48 Stewart Jeffery DO is Attending Physician. ms3 22:59 Triage completed. cm10 23:00 Arm band placed on Patient placed in an exam room. cm10 23:15 Inserted saline lock: 22 gauge in left antecubital area, using aseptic technique. Blood ha1 collected. 23:36 Amee Rosenberg, RN is Primary Nurse. ha1 23:50 CT Stroke Brain w/o Contrast In Process Unspecified. EDMS 05/24 00:25 Stroke CXR 1 View In Process Unspecified. EDMS 01:39 Mehdi Haq DO is Referral Physician. ms3 02:02 No provider procedures requiring assistance completed. IV discontinued, intact, ha1 bleeding controlled, No redness/swelling at site. Pressure dressing applied. 02:03 Patient has correct armband on for positive identification. Placed in gown. Bed in low ha1 position. Call light in reach. Provided Education on: FOLLOW [employer]. Administered Medications: No medications were administered Medication: 00:45 VIS not applicable for this client. ha1 Outcome: 01:39 Discharge ordered by MD. ms3 02:02 Discharged to home ambulatory, with family, ha1 02:02 Condition: stable 02:02 Discharge instructions given to patient, family, Instructed on discharge instructions, follow up and referral plans. Demonstrated understanding of instructions, follow-up care, 02:14 Patient left the ED. ha1 NIH Stroke Scale - NIH Stroke Score Date: 05/23/2023 Time: : Total Score = 0 10. Dysarthria (speech clarity - read or repeat words) - 0(Normal) 11. Extinction and Inattention (visual/tactile/auditory/spatial/personal) - 0(No abnormality) 1a. Level of Consciousness (LOC) - 0(Alert) 1b. Level of Consciousness (LOC) (Month \T\ Age) - 0(Both) 1c. LOC Commands (Open \T\ Closes Eyes/Road Machine Operator) - 0(Both) 2. Best Gaze (Lateral Gaze Paresis) - 0(Normal) 3. Visual Field Loss - 0(No visual loss) 4. Facial Palsy - 0(Normal) 5a. Left Arm: Motor (10-second hold) - 0(No drift) 5b. Right Arm: Motor (10-second hold) - 0(No drift) 6a. Left Leg: Motor (5-second hold - always test supine) - 0(No drift) 6b. Right Leg: Motor (5-second hold - always test supine) - 0(No drift) 7. Limb Ataxia (finger/nose \T\ heel/kidd - test with eyes open) - 0(Absent) 8. Sensory Loss (pinprick arms/legs/face) - 0(Normal) 9. Best Language: Aphasia (description/naming/reading) - 0(No aphasia) Initials: ms3 Signatures: Dispatcher [employer] EDMS Stewart Jeffery DO DO ms3 Caro Valencia [email or web address] Amee Rosenberg, RN RN ha1 Lyly Phillip, ADITI RN cm10
[2023-05-24 02:43] VITALS: TEMP 97.9
[2023-05-24 02:49] VITALS: O2SAT 100
[2023-05-24 02:53] VITALS: BP 107/79
--- NOTE | 2023-05-24 21:25 | RAD REPORT ---
EXAM DESCRIPTION: CT head without IV contrast CLINICAL HISTORY: 63 years Female STROKE ALERT, altered sensation in the left lower extremity TECHNIQUE: Multiple axial CT images of the brain were performed followed by sagittal and coronal rec onstructed images. The CT study is performed according to ALARA (as low as reasonably achievable) or ALARA/IMAGE GENTLY, with automatic adjustment of mA and/or kV according to patient size. Performed on: 05/23/2023 at 11:42 PM Comparisons: None. FINDINGS: Brain: There is no evidence of mass, acute mass effect or midline shift. There are no acut e extra-axial fluid collections. There is no evidence of acute intracranial hemorrhage. The cerebra l sulci and ventricles are normal in size and configuration. There are no focal abnormal areas of inc reased or decreased attenuation. There is no evidence of a hyperdense MCA. Paranasal Sinuses and Mastoids: There is no significant mucosal thickening of the paranasal sinuses. There is trace opacification of the anterior inferior left mastoid air cells. The mastoid air cells a nd middle ear cavities are otherwise unremarkable. Orbits: The orbital contents are grossly unremarkable. Bones: No acute osseous abnormalities are identified. Soft Tissues: No focal soft tissue abnormalities are identified. IMPRESSION: 1. There is no evidence of acute intracranial pathology. 2. Trace opacification of the anterior inferior left mastoid air cells. These critical findings were discussed with Dr. Stewart Jeffery on 05/24/2023 at 12:04 a.m. central time. Electronically signed by: Delmis Aguiar DO 05/24/2023 12:04 AM CDT Due to temporary technical issues with the PACS/Fluency reporting system, reports are being signed by the in house radiologists without review as a courtesy to insure prompt reporting. The interpreting radiologist is fully responsible for the content of the report.
--- NOTE | 2023-05-24 21:28 | RAD REPORT ---
EXAM DESCRIPTION: XR Chest, 1 View CLINICAL HISTORY: The patient is 63 years old and is Female; left leg numbness TECHNIQUE: Frontal view of the chest. COMPARISON: No relevant prior studies available. FINDINGS: Lungs: Unremarkable. No consolidation. Pleural space: Unremarkable. No pneumothorax. Heart: Unremarkable. Mediastinum: Unremarkable. Bones/joints: No acute findings. IMPRESSION: No acute findings in the chest. Electronically signed by: Javid Watts MD 05/24/2023 12:46 AM CDT Due to temporary technical issues with the PACS/Fluency reporting system, reports are being signed by the in house radiologists without review as a courtesy to insure prompt reporting. The interpreting radiologist is fully responsible for the content of the report.
--- NOTE | 2023-05-26 12:36 | EKG ---
Test Date: 2023-05-24 Test Time: 00:17:10 [employer]obile Radio Repairer: VITA MEASUREMENT RESULTS: Intervals: Rate: 67 MO: 164 QRSD: 104 QT: 418 QTc: 441 [place]: P: 58 MO: 164 QRS: -9 T: 51 INTERPRETIVE STATEMENTS: Normal sinus rhythm Normal ECG No previous ECG available for comparison Electronically Signed On 05-26-23 12:31:39 CDT by Lenard Rizo
== END 2023-05-24 02:14 | disposition home or self-care (01) ==
LOC: ER 22:31
DX: M62.831 Muscle spasm of calf (principal)
CPT/HCPCS: 36415; 70450; 71045; 80048; 83735; 84484; 85025; 85610; 85730; 93005; 99284

== ENCOUNTER 2023-10-24 06:42 | Day surgery (SDC) | payer OTHER ==
[2023-10-22 11:29] LABS: Absolute Lymphocytes (CBC) 2.6 K/uL (0.7-4.9); Hematocrit 42.4 % (36.0-45.0); Lymphocytes % 37.4 % (15.3-44.8); MCV 96.2 fL (80-100); MPV 7.3 fL (7.6-11.3); Platelets 297 thou/uL (152-406); RBC Red Blood Cell Count 4.41 M/uL (3.86-4.86)
[2023-10-22 11:50] LABS: Potassium 3.9 mEq/L (3.5-5.1)
[2023-10-24] MEDS ORDERED: Ringers Lactate 1,000 ML IV ONE (07:02)
[2023-10-24] MEDS ORDERED: SIMETHICONE 40 MG/ 0.6 ML ONE (07:24)
[2023-10-24] MEDS ORDERED: propofoL 200 MG/20 ML VIAL IV ONE (07:42)
[2023-10-24] MEDS ORDERED: LIDOCAINE 1% MPF 30 ML VIAL ONE (07:43)
[2023-10-24 09:35] VITALS: BP 110/62; TEMP 96.9; O2SAT 100
== END 2023-10-24 09:27 | disposition home or self-care (01) ==
LOC: OR 06:42
PROVIDERS: ATTEND Surgery
PROC: 0DBM8ZX Excision of Descending Colon, Via Natural or Artificial Opening Endoscopic, Diagnostic (ICD-10-PCS; 2023-10-24)
PROC: 0DBK8ZX Excision of Ascending Colon, Via Natural or Artificial Opening Endoscopic, Diagnostic (ICD-10-PCS; principal; 2023-10-24 08:00)
DX: R19.5 Other fecal abnormalities (principal); K63.5 Polyp of colon; K64.8 Other hemorrhoids
CPT/HCPCS: 85025; 80048; 36415; 88304; 45385; J2704; J2001; J7120; 88305